=== PATIENT | male | born 1985 | race Caucasian/White ===

== ENCOUNTER 2019-10-05 13:35 | Emergency (ER) | payer OTHER ==
[~2019-10-05] VITALS: Ht 172.7 cm; Wt 86.2 kg
[~2019-10-05 13:35] MED LIST: Ativan1 MG PO; CODGUAEL PO; ERYT1OIN RIGHTEYE; IBUP800 PO; OLAN5 PO; PENVK500 PO; PROM25 PO; RISP.5 PO
[2019-10-05 13:59] LABS: BASOPHILS ABSOLUTE AUTO 0.14 K/mm3 (0.00-0.23); BASOPHILS PERCENT AUTO 1 % (0-2); EOSINOPHILS ABSOLUTE AUTO 0.37 K/mm3 (0.00-0.68); EOSINOPHILS PERCENT AUTO 2 % (0-6); Hematocrit 43.9 % (37.0-53.0); Hemoglobin 15.5 g/dL (13.5-17.5); IMMATURE GRAN PERCENT AUTO 1 % (0-1); LYMPHOCYTES ABSOLUTE AUTO 2.66 K/mm3 (0.84-5.20); LYMPHOCYTES PERCENT AUTO 15 % (21-46); MONOCYTES ABSOLUTE AUTO 0.71 K/mm3 (0.16-1.47); MONOCYTES PERCENT AUTO 4 % (4-13); Mean Corpuscular HGB 31.9 pg (26.0-34.0); Mean Corpuscular HGB Conc 35.3 g/dL (31.5-36.5); Mean Corpuscular Volume 90 fL (80-100); Mean Platelet Volume 9.3 fL (9.1-12.4); NEUTROPHILS ABSOLUTE AUTO 13.87 K/mm3 (1.96-9.15); NEUTROPHILS PERCENT AUTO 78 % (41-73); Platelet Count 340 K/mm3 (150-400); RDW Standard Deviation 39.8 fL (35.1-46.3); Red Blood Cell Count 4.86 M/mm3 (4.30-5.90); White Blood Cell Count 17.85 K/mm3 (4.00-11.30)
[2019-10-05 14:09] LABS: Albumin, Blood 4.5 g/dL (3.4-5.0); Albumin/Globulin Ratio 1.4 (0.8-1.8); Bilirubin, Total 0.7 mg/dL (0.1-1.0); Bun/Creatinine Ratio 8.2 (12.0-20.0); Calcium, Blood 9.3 mg/dL (8.5-10.1); Creatinine, Blood 1.58 mg/dL (0.60-1.20); Globulin, Blood 3.2 g/dL (2.2-4.0); Potassium, Blood 2.8 mmol/L (3.5-5.5); Total Protein, Blood 7.7 g/dL (6.4-8.2)
[2019-10-05 14:24] LABS: Source, Urine Catheter
[2019-10-05 14:33] LABS: Bilirubin, Urine Neg (Neg); Blood, Urine 5+ (Neg); Glucose Qualitative, Urine Neg (Neg); Ketones, Urine 1+ (Neg); Leukocyte Esterase, Urine 1+ (Neg); Nitrite, Urine Neg (Neg); Protein, Urine 3+ (Neg); Urobilinogen, Urine 1+ (Normal)
[2019-10-05 15:42] LABS: U Amphetamine Screen DETECTED; U Barbituate Screen Not Detected; U Benzodiazapine Screen Not Detected; U Buprenorphine Screen Not Detected; U Cannabinoids Screen DETECTED; U Cocaine Screen Not Detected; U Methadone Screen Not Detected; U Methamphetamine Screen DETECTED; U Opiates Screen Not Detected; U Oxycodone Screen Not Detected; U Phencyclidine Screen Not Detected; U Propoxyphene Screen Not Detected
[2019-10-05 15:47] LABS: Appearance, Urine Cloudy (Clear); Color, Urine Amber (P-Yellow)
[2019-10-05 15:49] LABS: Bacteria Mod /hpf; Red Blood Cells, Urine TNTC /hpf (0-2); Squamous Epithelial Cells Few /hpf (Few)
== END 2019-10-05 15:05 | disposition short-term general hospital (02) ==
LOC: ER 13:35
PROVIDERS: Internal Medicine
DX: S22.43XA Multiple fractures of ribs, bilateral, initial encounter for closed fracture (principal); S22.24XA Fracture of xiphoid process, initial encounter for closed fracture; S81.811A Laceration without foreign body, right lower leg, initial encounter; S37.031A Laceration of right kidney, unspecified degree, initial encounter; S81.831A Puncture wound without foreign body, right lower leg, initial encounter; S36.892A Contusion of other intra-abdominal organs, initial encounter; S20.312A Abrasion of left front wall of thorax, initial encounter; I71.00 Dissection of unspecified site of aorta; F17.210 Nicotine dependence, cigarettes, uncomplicated; V47.0XXA Car driver injured in collision with fixed or stationary object in nontraffic accident, initial encounter
CPT/HCPCS: 36430; 51702; 70450; 71045; 71260; 72125; 73590; 74177; 80053; 81001; 82947; 85025; 86850; 86900; 86901; 86923; 96374-59; 96375-59; 99285-25; J1170; J2405; J7030; J7120; P9016; Q9967

== ENCOUNTER 2019-10-17 12:18 | Day surgery (SDC) | payer OTHER | END 2019-10-17 22:58 | disposition home or self-care (01) | LOC: WOUND 12:18 | DX: S81.801D Unspecified open wound, right lower leg, subsequent encounter (principal); J45.909 Unspecified asthma, uncomplicated; Z87.891 Personal history of nicotine dependence | CPT/HCPCS: G0463 ==

== ENCOUNTER 2019-10-27 08:00 | Day surgery (SDC) | payer OTHER | END 2019-10-27 23:01 | disposition home or self-care (01) | LOC: WOUND 08:00 | DX: S81.801A Unspecified open wound, right lower leg, initial encounter (principal); I96 Gangrene, not elsewhere classified; J45.909 Unspecified asthma, uncomplicated; X05.XXXA Exposure to ignition or melting of nightwear, initial encounter ==

== ENCOUNTER 2019-11-02 08:42 | Emergency (ER) | payer OTHER ==
[~2019-11-02] VITALS: Ht 172.7 cm; Wt 81.7 kg
[2019-11-02] MEDS ORDERED: OXYC5 (08:58)
[2019-11-02] MEDS ORDERED: DICLOFENAC SOD100 G1 TP (08:59)
[2019-11-02] MEDS ORDERED: Lopressor 50 mg50 MG (08:59)
[2019-11-02 09:11] LABS: BASOPHILS PERCENT AUTO 1 % (0-2); EOSINOPHILS ABSOLUTE AUTO 0.46 K/mm3 (0.00-0.68); EOSINOPHILS PERCENT AUTO 6 % (0-6); Hematocrit 42.9 % (37.0-53.0); Hemoglobin 14.4 g/dL (13.5-17.5); IMMATURE GRAN ABSOLUTE AUTO 0.01 K/mm3 (0.00-0.10); IMMATURE GRAN PERCENT AUTO 0 % (0-1); LYMPHOCYTES PERCENT AUTO 24 % (21-46); MONOCYTES ABSOLUTE AUTO 0.44 K/mm3 (0.16-1.47); MONOCYTES PERCENT AUTO 6 % (4-13); Mean Corpuscular HGB 29.6 pg (26.0-34.0); Mean Corpuscular HGB Conc 33.6 g/dL (31.5-36.5); Mean Corpuscular Volume 88 fL (80-100); Mean Platelet Volume 8.7 fL (9.1-12.4); NEUTROPHILS ABSOLUTE AUTO 4.84 K/mm3 (1.96-9.15); NEUTROPHILS PERCENT AUTO 63 % (41-73); Platelet Count 427 K/mm3 (150-400); RDW Coefficient Variation 12.2 % (11.7-14.2); RDW Standard Deviation 39.8 fL (35.1-46.3); Red Blood Cell Count 4.86 M/mm3 (4.30-5.90); White Blood Cell Count 7.65 K/mm3 (4.00-11.30)
[2019-11-02 09:28] LABS: Troponin I <0.015 ng/mL (0.000-0.040)
[2019-11-02 09:29] LABS: Alanine Aminotransfer (ALT/SGP 35 U/L (12-78); Albumin/Globulin Ratio 0.9 (0.8-1.8); Alk Phos 123 U/L (50-136); Anion Gap 5 mmol/L (6-16); Aspartate Aminotrans (AST/SGOT 12 U/L (12-37); Bilirubin, Total 0.4 mg/dL (0.1-1.0); Blood Urea Nitrogen 8 mg/dL (8-24); Bun/Creatinine Ratio 10.2 (12.0-20.0); CO2, Blood 30 mmol/L (21-32); Calcium, Blood 9.7 mg/dL (8.5-10.1); Chloride, Blood 102 mmol/L (98-108); Creatinine, Blood 0.78 mg/dL (0.60-1.20); Globulin, Blood 4.4 g/dL (2.2-4.0); Glomerular Filtration Rate >60 (60-); Glucose, Blood 96 mg/dL (70-99); Potassium, Blood 3.8 mmol/L (3.5-5.5); Sodium, Blood 137 mmol/L (136-145); Total Protein, Blood 8.4 g/dL (6.4-8.2)
== END 2019-11-02 12:29 | disposition home or self-care (01) ==
LOC: ER 08:42
PROVIDERS: Physician Assistant
DX: R07.9 Chest pain, unspecified (principal); R42 Dizziness and giddiness; F41.9 Anxiety disorder, unspecified; F31.9 Bipolar disorder, unspecified; F17.200 Nicotine dependence, unspecified, uncomplicated; Z79.899 Other long term (current) drug therapy
CPT/HCPCS: 36415; 71275; 74175; 80053; 84484; 85025; 93005; 93010; 99285-25; Q9967

== ENCOUNTER 2019-11-03 08:05 | Day surgery (SDC) | payer OTHER ==
[~2019-11-03 08:05] MED LIST changes: +DICLOFENAC SOD100 G1 TP; +Lopressor 50 mg50 MG; +OXYC5
== END 2019-11-03 22:44 | disposition home or self-care (01) ==
LOC: WOUND
DX: S81.801A Unspecified open wound, right lower leg, initial encounter (principal); I96 Gangrene, not elsewhere classified; J45.909 Unspecified asthma, uncomplicated; Z79.899 Other long term (current) drug therapy; V89.2XXA Person injured in unspecified motor-vehicle accident, traffic, initial encounter

== ENCOUNTER 2019-11-22 14:52 | Day surgery (SDC) | payer OTHER | END 2019-11-22 22:32 | disposition home or self-care (01) | LOC: WOUND 14:52 | DX: S81.801D Unspecified open wound, right lower leg, subsequent encounter (principal); I96 Gangrene, not elsewhere classified; J45.909 Unspecified asthma, uncomplicated; J32.9 Chronic sinusitis, unspecified; Z79.899 Other long term (current) drug therapy; X58.XXXD Exposure to other specified factors, subsequent encounter | CPT/HCPCS: G0463 ==

== ENCOUNTER 2021-01-20 13:48 | Emergency (ER) | payer OTHER ==
[~2021-01-20] VITALS: Ht 172.7 cm; Wt 86.2 kg
[2021-01-20 14:24] LABS: Source, Urine Voided
[2021-01-20 14:28] LABS: Bilirubin, Urine Neg (Neg); Blood, Urine Neg (Neg); Glucose Qualitative, Urine Neg (Neg); Ketones, Urine Neg (Neg); Leukocyte Esterase, Urine Neg (Neg); Nitrite, Urine Neg (Neg); Protein, Urine Neg (Neg); Urobilinogen, Urine NORM (Normal)
[2021-01-20 14:36] LABS: Appearance, Urine Clear (Clear); Color, Urine Pale Yellow (P-Yellow)
== END 2021-01-20 15:10 | disposition home or self-care (01) ==
LOC: ER 13:48
PROVIDERS: Emergency Medicine
DX: L30.9 Dermatitis, unspecified (principal); R39.15 Urgency of urination; R35.0 Frequency of micturition; Z87.891 Personal history of nicotine dependence
CPT/HCPCS: 51798; 81003; 99283-25

== ENCOUNTER 2021-02-13 19:07 | Emergency (ER) | payer OTHER ==
[~2021-02-13] VITALS: Ht 172.7 cm; Wt 83.9 kg
[2021-02-13 19:39] LABS: BASOPHILS ABSOLUTE AUTO 0.11 K/mm3 (0.00-0.23); BASOPHILS PERCENT AUTO 1 % (0-2); EOSINOPHILS ABSOLUTE AUTO 0.56 K/mm3 (0.00-0.68); EOSINOPHILS PERCENT AUTO 6 % (0-6); Hematocrit 44.2 % (37.0-53.0); Hemoglobin 15.6 g/dL (13.5-17.5); IMMATURE GRAN ABSOLUTE AUTO 0.02 K/mm3 (0.00-0.10); IMMATURE GRAN PERCENT AUTO 0 % (0-1); LYMPHOCYTES ABSOLUTE AUTO 3.63 K/mm3 (0.84-5.20); LYMPHOCYTES PERCENT AUTO 40 % (21-46); MONOCYTES ABSOLUTE AUTO 0.73 K/mm3 (0.16-1.47); MONOCYTES PERCENT AUTO 8 % (4-13); Mean Corpuscular HGB 30.8 pg (26.0-34.0); Mean Corpuscular HGB Conc 35.3 g/dL (31.5-36.5); Mean Corpuscular Volume 87 fL (80-100); Mean Platelet Volume 8.8 fL (9.1-12.4); NEUTROPHILS ABSOLUTE AUTO 4.06 K/mm3 (1.96-9.15); NEUTROPHILS PERCENT AUTO 45 % (41-73); Platelet Count 282 K/mm3 (150-400); RDW Coefficient Variation 12.2 % (11.7-14.2); RDW Standard Deviation 38.7 fL (35.1-46.3); Red Blood Cell Count 5.07 M/mm3 (4.30-5.90); White Blood Cell Count 9.11 K/mm3 (4.00-11.30)
[2021-02-13] MEDS ORDERED: OLAN2.5 PO (19:54)
[2021-02-13 19:57] LABS: Alanine Aminotransfer (ALT/SGP 62 U/L (12-78); Albumin, Blood 4.2 g/dL (3.4-5.0); Albumin/Globulin Ratio 1.3 (0.8-1.8); Alk Phos 63 U/L (50-136); Anion Gap 7 mmol/L (6-16); Aspartate Aminotrans (AST/SGOT 21 U/L (12-37); Bilirubin, Total 0.3 mg/dL (0.1-1.0); Blood Urea Nitrogen 15 mg/dL (8-24); Bun/Creatinine Ratio 13.5 (12.0-20.0); CO2, Blood 27 mmol/L (21-32); Calcium, Blood 9.2 mg/dL (8.5-10.1); Chloride, Blood 105 mmol/L (98-108); Creatinine, Blood 1.11 mg/dL (0.60-1.20); Globulin, Blood 3.3 g/dL (2.2-4.0); Glomerular Filtration Rate >60 (60-); Glucose, Blood 111 mg/dL (70-99); Potassium, Blood 3.5 mmol/L (3.5-5.5); Sodium, Blood 139 mmol/L (136-145); Total Protein, Blood 7.5 g/dL (6.4-8.2)
== END 2021-02-13 22:54 | disposition home or self-care (01) ==
LOC: ER 19:07
PROVIDERS: Emergency Medicine
DX: R55 Syncope and collapse (principal); M25.562 Pain in left knee; Z79.899 Other long term (current) drug therapy; X58.XXXA Exposure to other specified factors, initial encounter; Y93.A9 Activity, other involving cardiorespiratory exercise
CPT/HCPCS: 36415; 71260; 80053; 85025; 93005; 93010; 93971; 99285-25; Q9967

== ENCOUNTER → 2021-02-23 | Outpatient (CLI) | payer OTHER ==
[~2021-02-23] MED LIST changes: +ASPIR 8181 M1 PO; +OLAN2.5 PO
[2021-02-23 17:17] LABS: BASOPHILS ABSOLUTE AUTO 0.09 K/mm3 (0.00-0.23); BASOPHILS PERCENT AUTO 1 % (0-2); EOSINOPHILS ABSOLUTE AUTO 0.26 K/mm3 (0.00-0.68); EOSINOPHILS PERCENT AUTO 3 % (0-6); Hematocrit 47.4 % (37.0-53.0); Hemoglobin 16.4 g/dL (13.5-17.5); IMMATURE GRAN ABSOLUTE AUTO 0.02 K/mm3 (0.00-0.10); IMMATURE GRAN PERCENT AUTO 0 % (0-1); LYMPHOCYTES ABSOLUTE AUTO 1.69 K/mm3 (0.84-5.20); LYMPHOCYTES PERCENT AUTO 18 % (21-46); MONOCYTES ABSOLUTE AUTO 0.47 K/mm3 (0.16-1.47); MONOCYTES PERCENT AUTO 5 % (4-13); Mean Corpuscular HGB 29.8 pg (26.0-34.0); Mean Corpuscular HGB Conc 34.6 g/dL (31.5-36.5); Mean Corpuscular Volume 86 fL (80-100); Mean Platelet Volume 8.9 fL (9.1-12.4); NEUTROPHILS ABSOLUTE AUTO 6.92 K/mm3 (1.96-9.15); NEUTROPHILS PERCENT AUTO 73 % (41-73); Platelet Count 307 K/mm3 (150-400); RDW Coefficient Variation 12.1 % (11.7-14.2); RDW Standard Deviation 38.7 fL (35.1-46.3); Red Blood Cell Count 5.51 M/mm3 (4.30-5.90); White Blood Cell Count 9.45 K/mm3 (4.00-11.30)
[2021-02-23 17:44] LABS: Alanine Aminotransfer (ALT/SGP 51 U/L (12-78); Albumin, Blood 4.5 g/dL (3.4-5.0); Albumin/Globulin Ratio 1.3 (0.8-1.8); Alk Phos 66 U/L (50-136); Anion Gap 6 mmol/L (6-16); Aspartate Aminotrans (AST/SGOT 16 U/L (12-37); Bilirubin, Total 0.3 mg/dL (0.1-1.0); Blood Urea Nitrogen 13 mg/dL (8-24); Bun/Creatinine Ratio 13.1 (12.0-20.0); CO2, Blood 27 mmol/L (21-32); Calcium, Blood 9.3 mg/dL (8.5-10.1); Chloride, Blood 105 mmol/L (98-108); Creatinine, Blood 0.99 mg/dL (0.60-1.20); Globulin, Blood 3.5 g/dL (2.2-4.0); Glomerular Filtration Rate >60 (60-); Glucose, Blood 109 mg/dL (70-99); Potassium, Blood 3.8 mmol/L (3.5-5.5); Sodium, Blood 138 mmol/L (136-145)
== END | disposition home or self-care (01) ==
LOC: LAB 16:14 → LAB SHORT 16:14
PROVIDERS: Family Medicine
DX: M62.838 Other muscle spasm (principal); F41.9 Anxiety disorder, unspecified
CPT/HCPCS: 80053; 84443; 85025; 85379

== ENCOUNTER 2021-02-25 14:13 | Emergency (ER) | payer OTHER ==
[~2021-02-25] VITALS: Ht 172.7 cm; Wt 83.9 kg
[~2021-02-25 14:13] MED LIST changes: -ASPIR 8181 M1 PO
[2021-02-25 14:48] LABS: BASOPHILS ABSOLUTE AUTO 0.08 K/mm3 (0.00-0.23); BASOPHILS PERCENT AUTO 1 % (0-2); EOSINOPHILS ABSOLUTE AUTO 0.19 K/mm3 (0.00-0.68); EOSINOPHILS PERCENT AUTO 3 % (0-6); Hematocrit 45.5 % (37.0-53.0); IMMATURE GRAN ABSOLUTE AUTO 0.03 K/mm3 (0.00-0.10); IMMATURE GRAN PERCENT AUTO 0 % (0-1); LYMPHOCYTES ABSOLUTE AUTO 1.99 K/mm3 (0.84-5.20); LYMPHOCYTES PERCENT AUTO 28 % (21-46); MONOCYTES ABSOLUTE AUTO 0.52 K/mm3 (0.16-1.47); MONOCYTES PERCENT AUTO 7 % (4-13); Mean Corpuscular HGB 30.2 pg (26.0-34.0); Mean Corpuscular HGB Conc 35.2 g/dL (31.5-36.5); Mean Corpuscular Volume 86 fL (80-100); NEUTROPHILS PERCENT AUTO 61 % (41-73); Platelet Count 283 K/mm3 (150-400); RDW Standard Deviation 38.4 fL (35.1-46.3); Red Blood Cell Count 5.29 M/mm3 (4.30-5.90); White Blood Cell Count 7.21 K/mm3 (4.00-11.30)
[2021-02-25 15:27] LABS: Alanine Aminotransfer (ALT/SGP 43 U/L (12-78); Albumin, Blood 4.2 g/dL (3.4-5.0); Albumin/Globulin Ratio 1.2 (0.8-1.8); Alk Phos 64 U/L (50-136); Anion Gap 6 mmol/L (6-16); Aspartate Aminotrans (AST/SGOT 14 U/L (12-37); Bilirubin, Total 0.5 mg/dL (0.1-1.0); Blood Urea Nitrogen 13 mg/dL (8-24); CO2, Blood 27 mmol/L (21-32); Calcium, Blood 9.4 mg/dL (8.5-10.1); Chloride, Blood 106 mmol/L (98-108); Creatinine, Blood 0.87 mg/dL (0.60-1.20); Globulin, Blood 3.4 g/dL (2.2-4.0); Glomerular Filtration Rate >60 (60-); Glucose, Blood 104 mg/dL (70-99); Potassium, Blood 3.9 mmol/L (3.5-5.5); Sodium, Blood 139 mmol/L (136-145); Total Protein, Blood 7.6 g/dL (6.4-8.2); Troponin I <0.015 ng/mL (0.000-0.040)
== END 2021-02-25 16:55 | disposition home or self-care (01) ==
LOC: ER 14:13
PROVIDERS: Physician Assistant
DX: S29.011A Strain of muscle and tendon of front wall of thorax, initial encounter (principal); S86.911A Strain of unspecified muscle(s) and tendon(s) at lower leg level, right leg, initial encounter; R00.2 Palpitations; Z79.899 Other long term (current) drug therapy; X58.XXXA Exposure to other specified factors, initial encounter; Y93.B9 Activity, other involving muscle strengthening exercises
CPT/HCPCS: 36415; 71046; 80053; 84484; 85025; 93005; 93010; 99285-25

== ENCOUNTER 2021-03-14 09:05 | Emergency (ER) | payer OTHER ==
[~2021-03-14] VITALS: Ht 172.7 cm; Wt 81.7 kg
[2021-03-14] MEDS ORDERED: ASPIR 8181 M1 PO (12:38)
== END 2021-03-14 12:57 | disposition home or self-care (01) ==
LOC: ER 09:05
DX: I77.74 Dissection of vertebral artery (principal); Z79.82 Long term (current) use of aspirin
CPT/HCPCS: 36415; 70498; 99283-25; Q9967

== ENCOUNTER → 2023-07-20 | Outpatient (CLI) | payer OTHER ==
[~2023-07-20] MED LIST changes: +ASPIR 8181 M1 PO
[2023-07-20 16:14] LABS: U Amphetamine Screen DETECTED; U Barbituate Screen Not Detected; U Benzodiazapine Screen Not Detected; U Buprenorphine Screen Not Detected; U Cannabinoids Screen DETECTED; U Cocaine Screen Not Detected; U Methadone Screen Not Detected; U Methamphetamine Screen DETECTED; U Opiates Screen Not Detected; U Oxycodone Screen Not Detected; U Phencyclidine Screen Not Detected; U Propoxyphene Screen Not Detected
[2023-07-23 05:12] LABS: CARBOXY-THC 38 (.)
== END | disposition home or self-care (01) ==
LOC: LAB 13:39 → LAB SHORT 13:39
PROVIDERS: Nurse Practitioner Obstetrics & Gynecology
DX: F19.11 Other psychoactive substance abuse, in remission (principal)
CPT/HCPCS: G0480

== ENCOUNTER 2024-04-30 21:14 | Observation (INO) | payer OTHER ==
[~2024-04-30] VITALS: Ht 170.2 cm; Wt 81.7 kg
[2024-04-30 22:04] LABS: Source, Urine Clean Catch
[2024-04-30 22:08] LABS: BASOPHILS ABSOLUTE AUTO 0.09 K/mm3 (0.00-0.23); BASOPHILS PERCENT AUTO 1 % (0-2); Bilirubin, Urine Neg (Neg); Blood, Urine Neg (Neg); EOSINOPHILS PERCENT AUTO 4 % (0-6); Glucose Qualitative, Urine Neg (Neg); Hematocrit 36.6 % (37.0-53.0); Hemoglobin 12.7 g/dL (13.5-17.5); IMMATURE GRAN ABSOLUTE AUTO 0.01 K/mm3 (0.00-0.10); IMMATURE GRAN PERCENT AUTO 0 % (0-1); Ketones, Urine 1+ (Neg); LYMPHOCYTES ABSOLUTE AUTO 2.33 K/mm3 (0.84-5.20); LYMPHOCYTES PERCENT AUTO 29 % (21-46); Leukocyte Esterase, Urine Neg (Neg); MONOCYTES ABSOLUTE AUTO 0.67 K/mm3 (0.16-1.47); MONOCYTES PERCENT AUTO 8 % (4-13); Mean Corpuscular HGB 30.8 pg (26.0-34.0); Mean Corpuscular HGB Conc 34.7 g/dL (31.5-36.5); Mean Corpuscular Volume 89 fL (80-100); NEUTROPHILS ABSOLUTE AUTO 4.77 K/mm3 (1.96-9.15); NEUTROPHILS PERCENT AUTO 58 % (41-73); Nitrite, Urine Neg (Neg); Platelet Count 221 K/mm3 (150-400); Protein, Urine 2+ (Neg); RDW Coefficient Variation 12.3 % (11.7-14.2); RDW Standard Deviation 40.3 fL (35.1-46.3); Red Blood Cell Count 4.12 M/mm3 (4.30-5.90); Specific Gravity, Urine 1.025 (1.003-1.022); Urobilinogen, Urine NORM (Normal); White Blood Cell Count 8.17 K/mm3 (4.00-11.30)
[2024-04-30 22:15] LABS: Appearance, Urine Clear (Clear); Color, Urine Yellow (P-Yellow)
[2024-04-30 22:17] LABS: Amorphous Light (0-Heavy); Bacteria Rare /hpf; Mucus Light (0-Heavy); Red Blood Cells, Urine Not Seen /hpf (0-2); Squamous Epithelial Cells Rare /hpf (Few); White Blood Cells, Urine 0-2 /hpf (0-5)
[2024-04-30 22:25] LABS: U Amphetamine Screen DETECTED; U Barbituate Screen Not Detected; U Benzodiazapine Screen Not Detected; U Buprenorphine Screen Not Detected; U Cannabinoids Screen DETECTED; U Cocaine Screen Not Detected; U Methadone Screen Not Detected; U Methamphetamine Screen DETECTED; U Opiates Screen Not Detected; U Oxycodone Screen Not Detected; U Phencyclidine Screen Not Detected
[2024-04-30 22:30] LABS: Ethanol (Alcohol), Blood, Med <3 mg/dL; Salicylate <1.7 mg/dL (2.8-20.0); Thyroxine (T4) 10.4 ug/dL (4.5-12.1)
[2024-04-30 22:35] LABS: Alanine Aminotransfer (ALT/SGP 27 U/L (12-78); Albumin, Blood 4.2 g/dL (3.4-5.0); Albumin/Globulin Ratio 1.4 (0.8-1.8); Alk Phos 61 U/L (50-136); Anion Gap 10 mmol/L (3-11); Aspartate Aminotrans (AST/SGOT 38 U/L (12-37); Bilirubin, Total 0.9 mg/dL (0.1-1.0); Blood Urea Nitrogen 18 mg/dL (8-24); Bun/Creatinine Ratio 18.6 (12.0-20.0); CO2, Blood 25 mmol/L (21-32); Calcium, Blood 9.5 mg/dL (8.5-10.1); Chloride, Blood 107 mmol/L (98-108); Creatinine, Blood 0.97 mg/dL (0.60-1.20); Glomerular Filtration Rate 104 (60-); Glucose, Blood 104 mg/dL (70-99); Sodium, Blood 139 mmol/L (136-145); Total Protein, Blood 7.2 g/dL (6.4-8.2)
[2024-04-30 22:36] LABS: Acetaminophen, Random <2.0 ug/mL (10.0-30.0)
[2024-05-01] MEDS ORDERED: Potassium Chloride 20 MEQ TabCR PO ONE (01:25)
[2024-05-01] MEDS ORDERED: buPROPion HCL 150 MG TAB.SR.12H PO SCH (11:00)
[2024-05-01] MEDS ORDERED: Nicotine 21 MG PATCH TOP ONE (11:35)
[2024-05-01 11:58] VITALS: BP 132/82
[2024-05-01 12:23] LABS: Influenza A, PCR NEGATIVE (NEGATIVE); Influenza B, PCR NEGATIVE (NEGATIVE); Resp Syncytial Virus, PCR NEGATIVE (NEGATIVE); SARS-Cov-2 (COVID-19) PCR, MMC NEGATIVE (NEGATIVE)
[2024-05-05] MEDS ORDERED: BUPROPION HCL200 M2 PO (09:58)
[2024-05-05] MEDS ORDERED: NICO21TP TOP (09:59)
[2024-05-05] MEDS ORDERED: PRED20 PO (10:03)
[2024-05-05] MEDS ORDERED: QUET300 PO (10:11)
[2024-05-05] MEDS ORDERED: QUET25 PO (10:18)
== END 2024-05-01 16:15 | disposition other institution (70) ==
LOC: ER 21:14 → EOR 21:15
PROVIDERS: Physician Assistant; ADMIT Student in an Organized Health Care Education/Training Program
DX: F33.2 Major depressive disorder, recurrent severe without psychotic features (principal); R45.851 Suicidal ideations; F15.10 Other stimulant abuse, uncomplicated; F17.200 Nicotine dependence, unspecified, uncomplicated; Z79.899 Other long term (current) drug therapy
CPT/HCPCS: 0241U; 80053; 81001; 84436; 85025; 99285-25; A9270; G0378; G0480

== ENCOUNTER 2024-05-01 09:29 | Inpatient (IN) | payer OTHER ==
[~2024-05-01] VITALS: Ht 170.2 cm; Wt 81.8 kg
[2024-05-01] MEDS ORDERED: HydrOXYzine Pamoate 50 MG Cap PO PRN (12:10)
[2024-05-01] MEDS ORDERED: Ibuprofen 600 MG Tab PO PRN (12:10)
[2024-05-01] MEDS ORDERED: OLANZapine ODT 5 MG Tab MM PRN (12:15)
[2024-05-01] MEDS ORDERED: Haloperidol 5 MG Tab PO PRN ×3 (12:15→12:25)
[2024-05-01] MEDS ORDERED: RisperiDONE 1 MG Tab PO PRN (12:15)
[2024-05-01] MEDS ORDERED: LORazepam 2 MG Tab PO PRN ×5 (12:15→12:20)
[2024-05-01] MEDS ORDERED: Melatonin 3 MG Tab PO PRN (12:20)
[2024-05-01] MEDS ORDERED: QUEtiapine Fumarate 25 MG Tab PO PRN (12:20)
[2024-05-01] MEDS ORDERED: OLANZapine 10 MG Vial IM PRN ×2 (12:20)
[2024-05-01] MEDS ORDERED: Acetaminophen 325 MG TABLET PO PRN (12:20)
[2024-05-01] MEDS ORDERED: DiphenhydrAMINE HCl 50 MG Cap PO PRN ×3 (12:25)
[2024-05-01] MEDS ORDERED: Aluminum Hydroxide 320MG/5ML 473 ML PO PRN (12:25)
[2024-05-01] MEDS ORDERED: TraZODone HCl 50 MG Tab PO PRN (12:25)
[2024-05-01 15:40] LABS: Calcium, Ionized (POC) 1.23 mmol/L (1.10-1.46); Chloride (POC) 100 mmol/L (98-108); Creatinine (POC) 0.8 mg/dL (0.8-1.3); Glucose (ISTAT POC) 104 mg/dL (70-99); Hemoglobin (POC) 12.9 g/dL (13.5-17.5); Potassium (POC) 3.6 mmol/L (3.5-5.5); Sodium (POC) 139 mmol/L (135-148); Total CO2 (POC) 26 mmol/L (21-32)
[2024-05-01 17:53] VITALS: BP 120/80
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
[2024-05-01 20:28] VITALS: BP 124/88
--- NOTE | 2024-05-02 01:33 | NUR ---
pt denies SI, HI, A/VHallucinations. No Issues at this time.
--- NOTE | 2024-05-02 01:42 | NUR ---
Pt denies SI, HI, A/V Hallucination no issues at this time.
--- NOTE | 2024-05-02 01:45 | NUR ---
Pt denies SI, HI, A/V hallucination no issues at this time.
--- NOTE | 2024-05-02 01:50 | NUR ---
Pt denies SI, HI, A/V Hallucination, no issues at this time.
--- NOTE | 2024-05-02 01:54 | NUR ---
Pt denies SI, HI, A/V hallucination no issues reported at this time.
--- NOTE | 2024-05-02 01:56 | NUR ---
Pt denies SI, HI, A/V Hallucinations no issues reported at this time.
--- NOTE | 2024-05-02 02:00 | NUR ---
Pt denies SI, HI, A/V hallucinations no issues reported at this time.
--- NOTE | 2024-05-02 02:02 | NUR ---
Pt denies SI, HI, A/V Hallucinations no issues reported at this time.
--- NOTE | 2024-05-02 02:04 | NUR ---
Pt denies SI, HI, A/V Hallucinations no issues reported at this time.
--- NOTE | 2024-05-02 02:06 | NUR ---
Pt denies SI, HI, A/V hallucinations no issues reported at this time.
--- NOTE | 2024-05-02 02:25 | NUR ---
Pt denies SI, HI, pt states towards his A/V hallucinations "Im ready to knock them out ([employer] not directed to staff)" RN administered medications as ordered. Medications well tolerated. Pt requesed a private room.
[2024-05-02 07:46] VITALS: BP 117/92
[2024-05-02] MEDS ORDERED: Thiamine HCl 100 MG Tab PO SCH (09:00)
[2024-05-02] MEDS ORDERED: Folic Acid 1 MG TAB PO SCH (09:00)
[2024-05-02] MEDS ORDERED: buPROPion HCL 150 MG TAB.SR.12H PO SCH (09:00)
[2024-05-02] MEDS ORDERED: Multivitamins 1 Tab PO SCH (09:00)
--- NOTE | 2024-05-02 14:05 | NUR ---
PT HAS BEEN UP IN THE TV ROOM AD HAS NOT HAD ANY ISSUES. DENIES SI, HI,VH,AND FIELDS. STATES NO VOICES AND IS FEELING BETTER. INTERNAL STIMULI NEGATIVE AT THIS TIME.
[2024-05-02] MEDS ORDERED: Nicotine 21 MG PATCH TOP SCH (15:00)
--- NOTE | 2024-05-02 15:07 | NUR ---
During intake assessment, pt advised SW that he would like resources from [facility]. SW attempted to contact [facility] at 1353pm. SW was on hold from 1353 to 1406pm. NEELIMA will collaborate with pt to locate further resources for sheltering and housing assistance.
--- NOTE | 2024-05-02 15:26 | NUR ---
PT REFUSED NICODERM 21 MG PATCH. STATED "I DON'T THINK THAT I NEED ONE"
--- NOTE | 2024-05-02 17:52 | NUR ---
PT stated he is very thankful to be at [facility] and is very interested in making steps to "change and get better and follow through". PT stated he hasnt talked to his mother in almost two years, but wanted to try and reach out after his grandma brought her a handmade card, that he made, for her birthday on 05[birth year]. PT asked me to reenter his belongings box to get more phone numbers from his automatic data processing planner, we did it together, and he signed for the resecurity of his belongings bin. He called his grandma to ask if his mother had gotten the card, but she didnt answer. PT was calm and said that he knows his mom will do things on her own time, but he is hopeful she will come around after she sees his progress.
[2024-05-02] MEDS ORDERED: QUEtiapine Fumarate 200 MG Tab PO SCH (21:00)
--- NOTE | 2024-05-03 04:59 | NUR ---
Jarod was pleasant and upbeat about the possibilities of changing his life last night. He is grateful for the assistance we can give him via Social work and therapy. around 2100, he went to bed and fell asleep for the rest of the night. states no SI, A/V hallucinations or intrusive thoughhts.
[2024-05-03] MEDS ORDERED: BuPROPion HCl SR 100 MG TabCR PO SCH (09:00)
[2024-05-03 10:11] VITALS: BP 120/85
--- NOTE | 2024-05-03 11:22 | NUR ---
PT A/O X4. DENIES PAIN, AH,FIELDS,HI,VH. STATES HE FEELS THAT THE MEDICATIONS ARE HELPING AND WOUOD LIKE AN INCREASE IN HIS WELLBUTRIN. DID LET THE DR KNOW AND HE WILL INCREASE THE DOSAGE FOR HIM.RFUSED NICODERM PATCH THIS AM. WILL CONTINUE TO MONITOR.
[2024-05-03] MEDS ORDERED: QUEtiapine Fumarate 25 MG Tab PO PRN (12:10)
--- NOTE | 2024-05-03 12:56 | NUR ---
LAB REFUSAL PT REFUSED LAB DRAW, DR MORENO INFORMED AT THIS TIME AND REPORTS WILL TALK WITH PT TOMORROW TO ENCOURAGE LABS. LAB NOTIFIED.
--- NOTE | 2024-05-03 15:59 | NUR ---
At approximately 1557pm NEELIMA faxed application of Membership in [employer] to Cherelle Ko of [employer] (i.e. fax [phone]) per the request of Grace Zhao. NEELIMA supported pt during the completion of the form. NEELIMA provided pt with a copy of the completed form and placed the original within his chart.
[2024-05-03 19:50] VITALS: BP 122/93
[2024-05-03] MEDS ORDERED: QUEtiapine Fumarate 300 MG Tab PO SCH (21:00)
--- NOTE | 2024-05-04 04:20 | NUR ---
Patient very encouraged about the progress taking place both in how he is feeling, and his goals of finding a job and housing. no complaints of pain or discomfort overnight. Uninterrupted sleep time = 7 hours at this time
[2024-05-04 09:20] VITALS: BP 104/79
--- NOTE | 2024-05-04 10:17 | NUR ---
[facility] @0715 PT AWAKE, ALERT, AND ORIENTATED TO PERSON AND PLACE. HE IS DECLINING ALL MEDS AND REPORTS HE "WANTS HIS CUSTODIAN MANAGER" HE REPORTS THAT HE CAN "HEAR WHAT WE ARE DOING TO HIM" AND POINTS TO HIS EAR. ATTEMPTED TO REASON AND PATIENT AGAIN REFUSES MEDS. DANII PCI NOTIFIED AND AWARE. SHE REPORTS SHE SPOKE TO HIM YESTERDAY AND WILL DO SO AGAIN REGARDING THIS MATTER. WILL NOTIFY MR. MACIAS AT TEAM MEETING.
[2024-05-04] MEDS ORDERED: DiphenhydrAMINE HCL 25 MG Cap PO PRN (10:20)
--- NOTE | 2024-05-04 10:26 | NUR ---
[facility] @6224. PT AA&OX4. HE REPORTS THAT BL ARMS ARE "SWOLLEN AND ITCHY" HOSPITALIST CONSULTED. PT MAY HAVE POISON [place]. ORDERS RECIEVED FOR STEROID AND TOPICAL. PT MOOD IS CALM. HE IS MAKING APPROPRIATE EYE CONTACT. REPORTS HE IS FEELING GOOD. HE IS SETTING GOALS AND LOOKING FORWARD TO DC. DENIES SI, AH, VS, HI. HE DENIES ANY NEEDS AT THIS TIME.
[2024-05-04] MEDS ORDERED: PredniSONE 20 MG Tab PO SCH ×2 (11:00→11:24)
--- NOTE | 2024-05-04 17:45 | NUR ---
PT AA&OX4. PT HAS SLEPT MOST OF THE DAY. HE REPORTS THAT THE ENVIROMENT MAKES HIM "SLEEPY" THIS RN RECOMMENDED HE LET THE DR KNOW IN AM D/T RECENT MED INCREASE. HE VERBALIZED UNDERSTANDING. PT DENIES SI OR ANY OTHER PSYCHOTIC SYMTOMS. PLAN TO DC TOMORROW. [facility] SUPPORT WILL BE HERE AT 1030 TO TAKE PT TO [facility]. PT DENIES ANY NEEDS AT THIS TIME.
[2024-05-04 20:39] VITALS: BP 124/83
--- NOTE | 2024-05-04 21:08 | NUR ---
Pt calm, cooperative, denies SI, HI, A/V Hallucinations. Pt seen on unit with peers eating snack, watching TV, social, No Issues at this time.
--- NOTE | 2024-05-05 05:54 | NUR ---
pT EXTREMELY ANXIOUS, RN ADMINISTERED MEDICATIONS FOR ANXIETY, PT HAS HAD NO EFFECT FROM MEDICATIONS, CONTINUES TO BE GUARDED, IN POSITION, CRYING, ASKING FOR DOCTOR TO ASSESS HER SO CAN SEE SHE DOES NOT BELONG HERE.
[2024-05-05] MEDS ORDERED: BUPROPION HCL200 M2 PO ×2 (09:58)
[2024-05-05] MEDS ORDERED: NICO21TP TOP ×2 (09:59)
[2024-05-05 10:02] VITALS: BP 125/84
[2024-05-05] MEDS ORDERED: PRED20 PO ×2 (10:03)
[2024-05-05] MEDS ORDERED: QUET300 PO ×2 (10:11)
[2024-05-05] MEDS ORDERED: QUET25 PO ×2 (10:18)
--- NOTE | 2024-05-05 12:26 | NUR ---
DISCHARGED @ 1045. RIDE GIVEN BY [facility] TO [facility] TO FAMILY HELPER MEDICATIONS. GIVEN DISCHARGE INSTRUCTIONS, BELONGINGS, AND EDUCATION MATERIALS. PT A/O X4. DENIES SI,FIELDS,AH,VH.
[2024-05-06] MEDS ORDERED: PredniSONE 20 MG Tab PO SCH (09:00)
== END 2024-05-05 10:45 | disposition home or self-care (01) | DRG 885 ==
LOC: BHU 09:29
PROVIDERS: ADMIT Student in an Organized Health Care Education/Training Program
DX: F33.41 Major depressive disorder, recurrent, in partial remission (principal); F41.9 Anxiety disorder, unspecified; Z90.49 Acquired absence of other specified parts of digestive tract; Z98.890 Other specified postprocedural states; F17.210 Nicotine dependence, cigarettes, uncomplicated; F12.90 Cannabis use, unspecified, uncomplicated; F15.90 Other stimulant use, unspecified, uncomplicated; F90.9 Attention-deficit hyperactivity disorder, unspecified type; E87.6 Hypokalemia; Z56.0 Unemployment, unspecified
CPT/HCPCS: 80047; 85014; A9270; J7512

== ENCOUNTER → 2024-07-05 | Outpatient (CLI) | payer OTHER ==
[~2024-07-05] MED LIST changes: +BUPROPION HCL200 M2 PO; +NICO21TP TOP; +PRED20 PO; +QUET25 PO; +QUET300 PO
[2024-07-08 17:07] LABS: APTIMA MEDIA TYPE Urine; C. TRACHOMATIS BY TMA Negative (Negative); N. GONORRHOEAE BY TMA Negative (Negative); SPECIMEN SOURCE Urine
== END | disposition home or self-care (01) ==
LOC: LAB 17:50 → LAB SHORT 17:50
PROVIDERS: Family Medicine
DX: Z20.2 Contact with and (suspected) exposure to infections with a predominantly sexual mode of transmission (principal)
CPT/HCPCS: 87491; 87591